=== PATIENT | female | born 1985 | race Hispanic/Latino ===

== ENCOUNTER 2021-09-23 11:50 | Outpatient (CLI) | payer BC | END 2021-09-23 11:51 | disposition home or self-care (01) | LOC: SCSMRI 11:50 | PROVIDERS: ATTEND Orthopaedic Surgery | DX: S83.411A Sprain of medial collateral ligament of right knee, initial encounter (principal); S83.511A Sprain of anterior cruciate ligament of right knee, initial encounter; S83.241A Other tear of medial meniscus, current injury, right knee, initial encounter; S83.281A Other tear of lateral meniscus, current injury, right knee, initial encounter; S83.421A Sprain of lateral collateral ligament of right knee, initial encounter; S86.911A Strain of unspecified muscle(s) and tendon(s) at lower leg level, right leg, initial encounter ==

== ENCOUNTER 2021-09-27 08:32 | Outpatient (CLI) | payer BC ==
[2021-09-27 10:17] LABS: #Basophils 0.1 10x3/uL (0.0-0.2); #Eosinphils 0.3 10x3/uL (0.0-0.5); #Monocytes 0.7 10x3/uL (0.0-1.1); #Neutrophils 6.5 10x3/uL (1.5-8.4); %Basophils 0.9 % (0.0-2.0); %Eosinophils 2.9 % (0.0-6.0); %Lymphocytes 17.4 % (18.0-47.0); %Monocytes 7.7 % (0.0-10.0); %Neutrophils 70.5 % (40.0-75.0); Hemoglobin 14.6 g/dL (12.0-15.5); Mean Corpuscular HGB CONC 34.1 g/dL (32.0-36.0); Mean Corpuscular Hemoglobin 31.4 pg (27.0-33.0); Platelet Count 334 10x3/uL (150-450); RBC Distribution Width 11.8 % (11.5-14.5); Red Blood Cell (RBC) Count 4.65 10x6/uL (3.90-5.03); White Blood Cell (WBC) Count 9.2 10x3/uL (3.5-10.5)
[2021-09-27 10:22] LABS: BHCG - Serum Negative (NEGATIVE); Pregs Control Background? CLEAR/WHITE (CLR/WHITE); Pregs Control Bar Appear? YES (CONTROL BAR)
== END 2021-09-27 08:33 | disposition home or self-care (01) ==
LOC: LABBT 08:32
PROVIDERS: ATTEND Orthopaedic Surgery
DX: Z01.812 Encounter for preprocedural laboratory examination (principal); S83.411A Sprain of medial collateral ligament of right knee, initial encounter; S83.511A Sprain of anterior cruciate ligament of right knee, initial encounter; S83.281A Other tear of lateral meniscus, current injury, right knee, initial encounter; S83.241A Other tear of medial meniscus, current injury, right knee, initial encounter; S83.421A Sprain of lateral collateral ligament of right knee, initial encounter
CPT/HCPCS: 84703; 85025

== ENCOUNTER 2021-10-02 06:52 | Observation (INO) | payer BC ==
[2021-10-02] MEDS ORDERED: Vancomycin 1 GM/200 ML BAG ONE (07:21)
[2021-10-02] MEDS ORDERED: Midazolam HCl 2 mg/2 ml Vial ONE (08:05)
[2021-10-02] MEDS ORDERED: Fentanyl 250 MCG/5 ML VIAL ONE ×4 (08:05→13:50)
[2021-10-02] MEDS ORDERED: diphenhydrAMINE 50 MG/ML VIAL ONE (08:45)
[2021-10-02] MEDS ORDERED: Promethazine HCl 25 MG/ML VIAL IM PRN ×2 (09:00→14:02)
[2021-10-02] MEDS ORDERED: traMADol HCl 50 MG TAB PO PRN ×2 (09:00)
[2021-10-02] MEDS ORDERED: Zolpidem Tartrate 5 MG TAB PO PRN (09:00)
[2021-10-02] MEDS ORDERED: Ropivacaine 0.2% 550 ML 550 ML NERVE BLCK SCH (09:00)
[2021-10-02] MEDS ORDERED: HYDROcodone/Acetaminophen 10/325 mg Tablet PO PRN ×2 (09:00)
[2021-10-02] MEDS ORDERED: Ondansetron PF 4 MG/2 ML Vial IVP PRN (09:00)
[2021-10-02] MEDS ORDERED: Fentanyl 100 MCG/2 ML VIAL IV PRN ×2 (09:01→20:38)
[2021-10-02] MEDS ORDERED: ceFAZolin Sodium (SDC) 2 GM/100 ML BAG ONE (09:09)
[2021-10-02] MEDS ORDERED: Dexamethasone 20 MG/5 ML VIAL ONE (09:26)
[2021-10-02] MEDS ORDERED: Ondansetron PF 4 MG/2 ML Vial ONE (09:26)
[2021-10-02] MEDS ORDERED: Lidocaine 1% PF 5 ML VIAL ONE (09:26)
[2021-10-02] MEDS ORDERED: PHENYLEPHRINE-NS 100 MCG/ML 10 ML SYRINGE ONE (09:26)
[2021-10-02] MEDS ORDERED: Ketorolac Tromethamine 30 MG/ML VIAL ONE (09:26)
[2021-10-02] MEDS ORDERED: PROPOFOL 200 MG/20 ML VIAL ONE (09:26)
[2021-10-02] MEDS ORDERED: Bupivacaine HCl 0.5%/Epinephrine 1:200,000/PF 30 ml Vial ONE (09:26)
[2021-10-02] MEDS ORDERED: Acetaminophen 325 MG TAB PO PRN (13:03)
[2021-10-02] MEDS ORDERED: HYDROcodone/Acetaminophen 7.5/325 mg Tablet PO PRN (13:03)
[2021-10-02] MEDS ORDERED: diphenhydrAMINE 50 MG CAP PO PRN (13:03)
[2021-10-02] MEDS ORDERED: Milk Of Magnesia 30 ML UDCUP PO PRN (13:03)
[2021-10-02] MEDS ORDERED: Bisacodyl 10 MG SUPP PR PRN (13:03)
[2021-10-02] MEDS ORDERED: Melatonin 3 MG TAB PO PRN (13:25)
[2021-10-02] MEDS ORDERED: Ondansetron HCl/PF 4 MG/2 ML Vial IVP PRN (14:02)
[2021-10-02] MEDS ORDERED: Promethazine HCl 25 MG/ML VIAL IVPB PRN (14:02)
[2021-10-02] MEDS ORDERED: Promethazine HCl 25 MG/ML VIAL ONE (15:25)
[2021-10-02] MEDS: Ketorolac Tromethamine 30 MG/ML VIAL IVP SCH ×2 (17:29→17:34)
[2021-10-02] MEDS: HYDROcodone/Acetaminophen 7.5/325 mg Tablet PO PRN ×2 (17:35→21:17)
[2021-10-02] MEDS: CEFAZOLIN 2 GM, Admixture Fee 1 EACH in Sodium Chloride 0.9% 100 ML IVPB SCH (19:13)
[2021-10-02] MEDS: Dextrose 5 %-0.45 % NaCl 1,000 ML IV SCH (19:20)
[2021-10-02] MEDS ORDERED: Vancomycin 1.5 GRAM/300 ML BAG 1.5 GM in Premix Bag 1 BAG IVPB SCH (21:00)
[2021-10-02] MEDS: Famotidine 20 MG TAB PO SCH (21:15)
[2021-10-02] MEDS: Vancomycin HCl 1.5 GM in Sodium Chloride 0.9% 250 ML 300 ML IVPB SCH (21:15)
[2021-10-03] MEDS: Ketorolac Tromethamine 30 MG/ML VIAL IVP SCH ×3 (00:59→12:48)
[2021-10-03] MEDS: CEFAZOLIN 2 GM, Admixture Fee 1 EACH in Sodium Chloride 0.9% 100 ML IVPB SCH (02:35)
[2021-10-03] MEDS: HYDROcodone/Acetaminophen 7.5/325 mg Tablet PO PRN ×3 (02:37→14:04)
[2021-10-03] MEDS: Dextrose 5 %-0.45 % NaCl 1,000 ML IV SCH ×2 (03:40→09:23)
[2021-10-03] MEDS ORDERED: CeleCOXIB 100 MG CAP PO SCH (09:00)
[2021-10-03] MEDS: Famotidine 20 MG TAB PO SCH (09:21)
[2021-10-03] MEDS: Vancomycin HCl 1.5 GM in Sodium Chloride 0.9% 250 ML 300 ML IVPB SCH (12:17)
[2021-10-03 17:30] VITALS: BP 112/73; TEMP 98.3
[2021-10-03 19:37] VITALS: BMI 30.6
== END 2021-10-03 17:30 | disposition home or self-care (01) ==
LOC: SDC 06:52 → SJJU 13:07
PROVIDERS: ADMIT Orthopaedic Surgery; ATTEND Orthopaedic Surgery
PROC: 0MQN0ZZ Repair Right Knee Bursa and Ligament, Open Approach (ICD-10-PCS; principal; 2021-10-02)
PROC: 0MQN0ZZ Repair Right Knee Bursa and Ligament, Open Approach (ICD-10-PCS; 2021-10-02)
PROC: 3E0T3BZ Introduction of Anesthetic Agent into Peripheral Nerves and Plexi, Percutaneous Approach (ICD-10-PCS; 2021-10-02)
DX: S83.411A Sprain of medial collateral ligament of right knee, initial encounter (principal); S83.421A Sprain of lateral collateral ligament of right knee, initial encounter; S83.511A Sprain of anterior cruciate ligament of right knee, initial encounter; S83.281A Other tear of lateral meniscus, current injury, right knee, initial encounter; S83.241A Other tear of medial meniscus, current injury, right knee, initial encounter; E66.9 Obesity, unspecified; Z68.30 Body mass index [BMI] 30.0-30.9, adult; Z86.16 Personal history of COVID-19; Z79.1 Long term (current) use of non-steroidal anti-inflammatories (NSAID); W17.89XA Other fall from one level to another, initial encounter; Y93.31 Activity, mountain climbing, rock climbing and wall climbing
CPT/HCPCS: 96365; 96366; 96368; 96375; A4306; C1713; G0378; J0690; J1100; J1200; J1885; J2250; J2405; J2550; J2704; J2795; J3010; J3370; J3490; J7050